=== PATIENT | female | born 1950 | race Caucasian/White ===

== ENCOUNTER 2022-04-30 10:10 | Day surgery (SDC) | payer OTHER ==
[2022-04-30 09:41] LABS: Hematocrit 35.8 % (36.0-45.0); Lymphocytes % 16.3 % (15.3-44.8); MCV 91.7 fL (80-100); MPV 7.5 fL (7.6-11.3); RBC Red Blood Cell Count 3.91 M/uL (3.86-4.86)
--- NOTE | 2022-04-30 09:45 | RAD REPORT ---
EXAM DESCRIPTION: RAD - Chest Pa And Lat (2 Views) - 04/30/2022 9:34 am CLINICAL HISTORY: Pre op pending carpal tunnel and radius repair COMPARISON: None TECHNIQUE: Frontal and lateral views of the chest were obtained. FINDINGS: The lungs are clear of a peripheral mass or consolidation. Film technique results in accen tuated bibasilar lung markings. An acute process is not suspected. Diaphragm is flattened. Patient carlos s a right-sided Port-A-Cath in place. No hilar mass or lymphadenopathy suspected. Trachea is midline. Heart size is prominent. Upper vasculature within normal range. No pneumothorax or pleural effusions seen. No acute bony finding noted. Aortic tortuosity present without aneurysma l dilatation. IMPRESSION: Chronic chest changes are present as detailed. No acute cardiopulmonary finding seen.
[2022-04-30] MEDS ORDERED: Ringers Lactate 1,000 ML IV ONE (10:32)
[2022-04-30] MEDS ORDERED: LIDOCAINE 1% MPF 5 ML VIAL ONE (12:19)
[2022-04-30] MEDS ORDERED: dexAMETHasone 10 MG/ML VIAL ONE (12:19)
[2022-04-30] MEDS ORDERED: MIDAZOLAM HCL 2 MG/2 ML INJ ONE (12:19)
[2022-04-30] MEDS ORDERED: FENTANYL CITR 100 MCG/2 ML ONE (12:19)
[2022-04-30] MEDS ORDERED: EPINEPHRINE/PF 1 MG/ML AMP ONE (12:20)
[2022-04-30] MEDS ORDERED: CEFAZOLIN SODIUM 1 GM/VIAL ONE (12:26)
[2022-04-30] MEDS ORDERED: ROPLVACAINE HCL 20 ML ONE (12:39)
[2022-04-30] MEDS ORDERED: LIDOCAINE 2% MPF 5 ML VIAL ONE (13:07)
[2022-04-30] MEDS ORDERED: propofoL 200 MG/20 ML VIAL IV ONE ×4 (13:07→14:14)
[2022-04-30] MEDS ORDERED: KETOROLAC 30 MG/ML INJ ONE (13:45)
[2022-04-30] MEDS ORDERED: ONDANSETRON 4 MG/2 ML VIAL ONE (13:46)
[2022-04-30] MEDS ORDERED: Ringers Lactate 500 ML IV ONE (15:11)
[2022-04-30 16:41] VITALS: BP 160/97; TEMP 97.3; O2SAT 96
--- NOTE | 2022-04-30 18:33 | RAD REPORT ---
EXAM DESCRIPTION: RAD - Fluoroscopy <1 Hour - 04/30/2022 3:28 pm CLINICAL HISTORY: ORIF LEFT WRIST FX COMPARISON: No comparisons FINDINGS/IMPRESSION: Thirty-one intraoperative fluoroscopic images were submitted showing ORIF of th e distal radius. Improved alignment. Cumulative dose: 1.44 mGy Fluoro time: 1.2 minutes
--- NOTE | 2022-05-01 02:03 | OP ---
Date of Procedure: 04/30/2022 Surgeon: Deuce Cote MD Preoperative Diagnoses: Left highly comminuted distal radius fracture, which was multipart interfrag mentary and also with left median nerve paresthesias. Procedure: Left distal radius open reduction and internal fixation of greater than 3 fracture fragme nts using the Acumed 2 volar radius plating set and also open carpal tunnel release. Estimated Blood Loss: 10 cc. Complications: There were no complications. Specimen: No pathology specimens sent. Indications: Ms. Joiner is a 71-year-old female who unfortunately has a very poor pulmonary function, who fell injuring her left upper extremity. Normally in someone of this age with the pulmonary stat us she has we would treat this nonoperatively; however, the fracture itself appeared to be extremely comminuted and displaced and also unfortunately she did have median nerve paresthesias. I felt that this would do poorly with closed methods. Risks, benefits, and alternatives to fixation and open car pal tunnel release were discussed with the patient. She states she understands things as presented a nd wishes to proceed. Description Of Procedure: The patient was taken to the operating room and placed in supine position with sedation. She had previously had a block done in the holding area. A well-padded tourniquet wa s placed on superior left arm. Left upper extremity was then prepped and draped in usual sterile fas hion for the procedure. The arm was then elevated, but not exsanguinated and the tourniquet was rais ed. The C-arm was brought in to examine the fracture and fracture fragments. With a closed reductio n maneuver, it did appear that the fracture fragments were probably large enough to accommodate for o pen reduction and internal fixation; however, we did have external fixator available in case this was not the case as it was difficult to determine the exact morphology based on the x-rays because of th e comminution and displacement. Decision was made to move forward with open reduction and internal f ixation, which was done using the standard volar approach of [place] with an incision, which proceeds o cele the flexor carpi radialis with a zigzag at the radial wrist crease. This was taken down carefull y through skin only with meticulous hemostasis being maintained using bipolar electrocautery. The fl exor carpi radialis was encountered, it was then gently reflected radialward and the underlying sheat h was then exploited. The muscle belly and tendon of the flexor pollicis longus were encountered. T hey were then swept ulnarward to protect the median nerve. The pronator quadratus was then encounter ed and divided allowing for visualization of the volar radius and fracture site. The fracture was hi ghly displaced with the use of a [place] elevator as well as instruments and manual reduction technique does give us a fairly good reduction and appears to reestablish the length and angulation of the wri st. Decision was made to place the locking plate through the oblong hole. However, this was left pr oud as the plate was then applied using a reduction maneuver, distally using an unlocked screw follow ed by pegs, after the distal fragment pegs were placed. This allows for the use of the plate to repo sition the distal fracture fragment slightly more distally as well as more ulnarward and also reestab lished tilt better. After this was done, the 2 styloid pegs were then placed. The previous unlocked screw was removed and replaced with the PEG. The remainder of the shaft screws are placed. The tog gle screw was a little long and it is replaced with a more appropriately sized screw. After this, bi planar C-arm radiography appeared to be of much better reduction and appears that the construct is st able. Attention was then turned to the carpal tunnel and a standard incision was made, which paralle ls the thenar crease. There was a slight ulnar deviation at the wrist crease. These 2 incisions do not meet. This was taken down carefully through skin only with meticulous hemostasis being maintaine d using bipolar electrocautery. This leads to the palmar fascia, which was then divided. Any obstru ctions to transverse carpal ligament were then gently swept to the side. This was then divided in a proximal to distal direction until there were no constricting bands. It was then divided in a distal to proximal direction until there were no constricting bands. After this, the median nerve itself w as inspected and was found to be in good condition. I did not have an excessive amount of bruising; however, did have some hyperemia and signs of some increased pressure, which is now relieved with the carpal tunnel release. Both wounds were gently irrigated and the skin was closed using nylon suture s. The patient was placed in extremely well-padded sterile dressing as well as sugar-tong splint. She was then taken to recovery room in good condition . XENIA Voice ID: [id number] Report ID: [id number]
--- NOTE | 2022-05-01 19:14 | EKG ---
Test Date: 2022-04-30 Test Time: 09:03:13 [employer]: THALIA MEASUREMENT RESULTS: Intervals: Rate: 74 TX: 194 QRSD: 90 QT: 438 QTc: 486 [place]: P: 85 TX: 194 QRS: -34 T: 87 INTERPRETIVE STATEMENTS: Sinus rhythm with marked sinus arrhythmia Left axis deviation Pulmonary disease pattern Prolonged QT Abnormal ECG No previous ECG available for comparison Electronically Signed On 05-01-22 19:10:37 [employer] DBA by Avelino Barrett
== END 2022-04-30 16:30 | disposition home or self-care (01) ==
LOC: OR 10:10
PROVIDERS: ATTEND Orthopaedic Surgery
PROC: 0PSJ04Z Reposition Left Radius with Internal Fixation Device, Open Approach (ICD-10-PCS; principal; 2022-04-30 13:15)
PROC: 01N50ZZ Release Median Nerve, Open Approach (ICD-10-PCS; 2022-04-30 13:15)
DX: S52.572A Other intraarticular fracture of lower end of left radius, initial encounter for closed fracture (principal); G56.02 Carpal tunnel syndrome, left upper limb; C91.11 Chronic lymphocytic leukemia of B-cell type in remission; I10 Essential (primary) hypertension; J44.9 Chronic obstructive pulmonary disease, unspecified; F41.9 Anxiety disorder, unspecified
CPT/HCPCS: 93005; 85025; 80048; 36415; 71046; 25609; 64721; J2704 ×4; J0171; J2001 ×2; J2250; J3010; J1100; J2795; J7120; J2405; J0690; 76000